=== PATIENT | female | born 1970 | race Caucasian/White ===

== ENCOUNTER 2023-07-21 11:45 | Emergency (ER) | payer OTHER, BC, MEDICARE ==
[~2023-07-21] VITALS: Ht 162.6 cm; Wt 81.7 kg
[2023-07-21 12:45] LABS: BASOPHILS ABSOLUTE AUTO 0.05 K/mm3 (0.00-0.23); BASOPHILS PERCENT AUTO 1 % (0-2); EOSINOPHILS ABSOLUTE AUTO 0.23 K/mm3 (0.00-0.68); EOSINOPHILS PERCENT AUTO 3 % (0-6); Hematocrit 45.9 % (33.0-51.0); Hemoglobin 15.7 g/dL (11.5-16.0); IMMATURE GRAN ABSOLUTE AUTO 0.02 K/mm3 (0.00-0.10); IMMATURE GRAN PERCENT AUTO 0 % (0-1); LYMPHOCYTES ABSOLUTE AUTO 1.67 K/mm3 (0.84-5.20); LYMPHOCYTES PERCENT AUTO 21 % (21-46); MONOCYTES ABSOLUTE AUTO 0.36 K/mm3 (0.16-1.47); MONOCYTES PERCENT AUTO 5 % (4-13); Mean Corpuscular HGB 30.9 pg (26.0-34.0); Mean Corpuscular HGB Conc 34.2 g/dL (31.5-36.5); Mean Corpuscular Volume 90 fL (80-100); NEUTROPHILS ABSOLUTE AUTO 5.49 K/mm3 (1.96-9.15); NEUTROPHILS PERCENT AUTO 70 % (41-73); Platelet Count 174 K/mm3 (150-400); RDW Coefficient Variation 14.8 % (11.7-14.2); Red Blood Cell Count 5.08 M/mm3 (3.80-5.20); White Blood Cell Count 7.82 K/mm3 (4.00-11.30)
[2023-07-21 13:35] LABS: Albumin/Globulin Ratio 1.1 (0.8-1.8); Bilirubin, Total 0.6 mg/dL (0.1-1.0); Bun/Creatinine Ratio 13.3 (12.0-20.0); Creatinine, Blood 0.83 mg/dL (0.40-1.00); Globulin, Blood 3.8 g/dL (2.2-4.0); Total Protein, Blood 7.8 g/dL (6.4-8.2)
[2023-07-21] MEDS ORDERED: HYDROcodone 5-APAP 325 TAB PO ONE (15:10)
[2023-07-21] MEDS ORDERED: Norco 5-325 Ta1 EACH PO (16:40)
== END 2023-07-21 15:55 | disposition home or self-care (01) ==
LOC: ER 11:45
PROVIDERS: Physician Assistant
DX: S22.089A Unspecified fracture of T11-T12 vertebra, initial encounter for closed fracture (principal); N83.201 Unspecified ovarian cyst, right side; K52.89 Other specified noninfective gastroenteritis and colitis; Z98.84 Bariatric surgery status; Z88.8 Allergy status to other drugs, medicaments and biological substances; Z98.1 Arthrodesis status; V47.5XXA Car driver injured in collision with fixed or stationary object in traffic accident, initial encounter; Y92.410 Unspecified street and highway as the place of occurrence of the external cause
CPT/HCPCS: 72125; 74177; 80053; 82550; 85025; 99284-25; A9270; Q9967

== ENCOUNTER 2024-08-01 22:49 | Emergency (ER) | payer BC ==
[~2024-08-01] VITALS: Ht 167.6 cm; Wt 68.0 kg
[~2024-08-01 22:49] MED LIST: Norco 5-325 Ta1 EACH PO
[2024-08-01] MEDS ORDERED: Amoxicillin/Clavulanate K 875 MG Tab PO ONE (23:20)
[2024-08-01] MEDS ORDERED: Ondansetron 4 MG SoluTab SL ONE (23:20)
[2024-08-01] MEDS ORDERED: AMOCLA875 PO (23:21)
[2024-08-01] MEDS ORDERED: ONDA4ODT MM (23:21)
[2024-08-01] MEDS ORDERED: RX Prepack 6 Tabs Oxycodone 5mg UD ONE (23:25)
[2024-08-01] MEDS ORDERED: RX Prepack 2 Tabs Ondansetron ODT 4MG UD ONE (23:25)
== END 2024-08-01 23:45 | disposition home or self-care (01) ==
LOC: ER 22:49
DX: K12.2 Cellulitis and abscess of mouth (principal); I10 Essential (primary) hypertension; Z88.8 Allergy status to other drugs, medicaments and biological substances; Z79.899 Other long term (current) drug therapy; Z59.89 Other problems related to housing and economic circumstances
CPT/HCPCS: 99282; A9270